=== PATIENT | female | born 1995 | race American Indian/Alaskan Native ===

== ENCOUNTER 2018-06-29 14:47 | Outpatient (CLI) | payer OTHER ==
[2018-06-29] MEDS ORDERED: LACTATED RINGERS 500 ML IV ONE (15:00)
[2018-06-29 15:11] VITALS: BP 111/63
[2018-06-29 15:43] LABS: Bacteria,Urine 1+ /HPF (Negative); Bilirubin,Urine NEG (Negative); Blood,Urine NEG (Negative); Color,Urine Yellow (Yellow); Mucus,Urine FEW /HPF; Protein,Urine <15 mg/dL mg/dL (Negative); Urobilinogen,Urine < 2.0 mg/dL (<2.0)
[2018-06-29 16:07] LABS: Amphetamine Screen,Urine PRESUMPTIVE NEGATIVE; Benzodiazepines Screen,Urine PRESUMPTIVE NEGATIVE; Cannabinoid Screen,Urine PRESUMPTIVE NEGATIVE; Cocaine Screen,Urine PRESUMPTIVE NEGATIVE; Methadone Screen,Urine PRESUMPTIVE NEGATIVE; Opiate Screen,Urine PRESUMPTIVE NEGATIVE
== END 2018-06-29 16:00 | disposition home or self-care (01) ==
LOC: TRG 14:47
PROVIDERS: ATTEND Obstetrics & Gynecology
DX: Z3A.21 21 weeks gestation of pregnancy (principal); O47.02 False labor before 37 completed weeks of gestation, second trimester
CPT/HCPCS: 59025; 80307; 81001

== ENCOUNTER 2018-11-03 04:49 | Inpatient (IN) | payer MEDICAID ==
--- NOTE | 2018-11-03 07:00 | History and Physical Report ---
History of Present Illness Date of examination: 11/03/18 Date of admission: 11/03/2018 Chief complaint: Contractions since 02:00 today. History of present illness: 23 year old presents to L&D at 39 5/7 weeks gestation with complaint of contractions since 02:00 this morning. Patient denies vaginal bleeding or leaking of fluid. Patient reports active movement. Patient received care at [facility]. LMP 01/29/2018. EDC 11/05/2018. EGA 39 5/7 weeks. significant for the following: abnormal 1 hour sugar test (only one abnormal value on 3 hour OGTT); anemia (supplemented with oral iron); late transfer in from OB practice in [facility]. labs: O+, antibody screen negative, rubella immune, RPR nonreactive, hepatitis B surface antigen negative, HIV negative, GC negative, CT negative, diabetes screen 185 (3 hour OGTT: 93, 175, 173, 119), GBS negative. Past History Past Medical History: other (obesity) Past Surgical History: no surgical history [facility] History: denies: abnormal PAP smear, chlamydia, gonorrhea, hepatitis B, hepatitis C, herpes, HIV, syphilis, trichomonas Social history: no significant social history - Obstetrical History Expected Date of Delivery: 11/05/18 Actual Gestation: 39 Week(s) 5 Day(s) : 3 Para: 0 Hx # Term Pregnancies: 1 Number of Pregnancies: 0 Spontaneous Abortions: 1 Induced : 1 Number of Living Children: 0 Medications and Allergies Allergies Allergy/AdvReac Type Severity Reaction Status Date / Time No Known Allergies Allergy Verified 11/03/18 04:55 Home Medications Medication Instructions Recorded Confirmed Last Taken Type Acetaminophen [Pain Reliever] 1,000 mg PO Q8H PRN 06/29/18 06/29/18 2 Days Ago History ~06/27/18 Pnv No.95/Ferrous Fum/Folic AC 1 tab PO QDAY 06/29/18 06/29/18 06/29/18 09:30 History [ Formula Tablet] Active Meds: Active Medications Ephedrine Sulfate (Ephedrine Sulfate) 10 mg IV Q2M PRN PRN Reason: Hypotension Fentanyl (Sublimaze) 100 mcg IV Q2H PRN PRN Reason: Labor Pain Lactated Ringer's (Lactated Ringers) 1,000 mls @ 125 mls/hr IV DIRECT MARIA ELENA Oxytocin/Sodium Chloride (Pitocin/Ns 20 Unit/1000ml Drip) 20 units in 1,000 mls @ 125 mls/hr IV DIRECT MARIA ELENA Review of Systems All systems: negative (contractions) - Vital Signs Vital signs: Vital Signs Pulse BP 82 129/75 11/03/18 06:33 11/03/18 06:33 Temp Pulse Resp BP Pulse Ox 82 129/75 11/03/18 06:33 11/03/18 06:33 - Physical Exam Abdomen: Positive: normal appearance, soft. Negative: distention, tenderness, guarding, rigidity Genitourinary (Female): Positive: normal external genitalia, normal perenium. Negative: perineal/vulvar lesions Vagina: Positive: normal moisture Uterus: Positive: enlarged. Negative: tender Anus/Rectum: Positive: normal perianal skin Extremities: Positive: normal. Negative: tenderness - Obstetrical FHR: category 1 Uterine Contraction Monitor Mode: External Cervical Dilatation: 4 Cervical Effacement Percentage: 100 station: -3 Uterine Contraction Pattern: Regular Uterine Contraction Intensity: Moderate Results All other labs normal. Assessment and Plan A: at 39 5/7 weeks gestation. Labor. GBS negative. P: Admit. Epidural if desired by patient. Anticipate vaginal .
[2018-11-03 08:31] LABS: Hematocrit 36.5 % (30.3-42.9); Mean Corpuscular HGB Conc 33 % (30-34); Mean Corpuscular Volume 78 fl (79-97); Platelet Count 180 K/mm3 (140-440); Red Blood Count 4.67 M/mm3 (3.65-5.03); Red Cell Distribution Width 17.2 % (13.2-15.2)
[2018-11-03] MEDS: SUBLIMAZE IV PRN ×2 (11:42→16:31)
--- NOTE | 2018-11-03 13:54 | Event Note ---
Date: 11/03/18 SVE /-2.
--- NOTE | 2018-11-03 15:26 | Event Note ---
Date: 11/03/18 Patient requests epidural. SVE 6/-2.
[2018-11-03] MEDS ORDERED: NARCAN 2 MG/2 ML IV PRN (16:26)
--- NOTE | 2018-11-03 16:26 | Anesthesia Consultation ---
Anesthesia Consult and Med Hx Date of service: 11/03/18 - Airway Anesthetic Teeth Evaluation: Good ROM Head & Neck: Adequate Mental/Hyoid Distance: Adequate Mallampati Class: Class III Intubation Access Assessment: Possibly Difficult - Pre-Operative Health Status ASA Pre-Surgery Classification: ASA3 Proposed Anesthetic Plan: Epidural, Spinal - Pulmonary Hx Asthma: No COPD: No Hx Pneumonia: No - Cardiovascular System Hx Hypertension: No - Central Nervous System Hx Seizures: No Hx Psychiatric Problems: No - Endocrine Hx Renal Disease: No Hx End Stage Renal Disease: No Hx Hypothyroidism: No Hx Hyperthyroidism: No - Hematic Hx Anemia: No Hx Sickle Cell Disease: No - Other Systems Hx Alcohol Use: No Hx Obesity: Yes (BMI 41)
[2018-11-03] MEDS: LACTATED RINGERS 1,000 ML IV SCH ×3 (16:30→20:26)
[2018-11-03] MEDS ORDERED: fentaNYL-BUPIV 2 MCG/ML-0.125% 200 MCG/100 ML BAG EPIDURAL SCH (17:00)
--- NOTE | 2018-11-03 19:53 | Event Note ---
Date: 11/03/18 SVE 9/0.
[2018-11-03] MEDS: PITOCin/NS 20 UNIT/1000ML DRIP 20 UNITS/1,000 ML BAG IV SCH (23:44)
[2018-11-04] MEDS ORDERED: PEPCID PO SCH (00:15)
[2018-11-04] MEDS ORDERED: NORCO 5/325 PO PRN (00:32)
[2018-11-04] MEDS ORDERED: TUCKS PAD TP PRN (00:32)
[2018-11-04] MEDS ORDERED: LANSINOH TP PRN (00:32)
[2018-11-04] MEDS ORDERED: MILK OF MAGNESIA PO PRN (00:32)
[2018-11-04] MEDS ORDERED: DULCOLAX PR PRN (00:32)
[2018-11-04] MEDS: PITOCin/NS 20 UNIT/1000ML DRIP 20 UNITS/1,000 ML BAG IV SCH (00:54)
[2018-11-04] MEDS ORDERED: SODIUM CHLORIDE FLUSH SYRINGE 10 ML IV PRN (01:00)
[2018-11-04] MEDS: IBUPROFEN PO SCH ×3 (01:32→18:43)
--- NOTE | 2018-11-04 02:51 | Procedure Note ---
OB Delivery Note - Delivery Date of Delivery: 11/03/18 Surgeon: ALEX WILEY Estimated blood loss: 300cc - Vaginal Delivery presentation: vertex Delivery position: OA Intrapartum events: meconium, shoulder dystocia Delivery induction: none Delivery monitor: external FHT, external uterine Route of delivery: Delivery placenta: spontaneous Delivery cord: 3 umbilical vessels Episiotomy: midline Delivery laceration: none Delivery repair: vicryl Anesthesia: epidural Delivery comments: Spontaneous vaginal delivery of liveborn male infant weighing 3.763 kg over 2nd degree midline episiotomy. Meconium stained amniotic fluid; NICU present for delivery. Mild shoulder dystocia resolved with delivery of posterior arm. Spontaneous cry and respirations. Baby bulb suctioned. Three vessel cord double clamped and cut after cessation of pulsation. Spontaneous delivery of intact placenta and membranes by slaughter mechanism. EBL 300 cc. Pitocin to IV fluids after delivery of placenta. Fundus firm and midline. Vaginal sweep negative. 2nd degree episiotomy repaired with 2-0 vicryl. No other lacerations noted. Sponge count correct. Vaginal sweep negative. Placenta was extremely calcified; wanted to sent to path. Pt. and partner refused to let us send placenta to path; state they want to take it home. Mother and baby stable.
[2018-11-04 06:18] LABS: Hematocrit 31.6 % (30.3-42.9); Hemoglobin 10.3 gm/dl (10.1-14.3)
[2018-11-04] MEDS ORDERED: DERMOPLAST TP PRN (11:38)
--- NOTE | 2018-11-04 11:40 | Progress Note ---
Assessment and Plan - Patient Problems (1) Status post normal vaginal delivery Current Visit: Yes Status: Acute Plan to address problem: PPD 1 - stable Continue routine PP orders Dermoplast ordered prn Anticipate discharge in 24 - 48 hours Subjective - Subjective Date of service: 11/04/18 Principal diagnosis: PPD #1; s/p Interval history: see H&P, Event Notes, and OB Delivery Procedure Note Patient reports: appetite normal, voiding normally, pain well controlled, ambulating normally, no dizzy ambulation : doing well, other (breast and bottle feeding) Objective - Vital Signs Latest vital signs: Vital Signs Temp Pulse Resp BP BP Pulse Ox 11/04/18 08:14 97.6 F 96 H 20 109/57 97 11/04/18 04:00 98.7 F 74 16 114/72 11/04/18 02:48 98.8 F 98 H 18 116/49 91 11/04/18 01:48 100 H 110/56 11/04/18 01:33 102 H 118/56 11/04/18 01:18 111 H 107/55 11/04/18 01:03 105 H 112/55 11/04/18 00:48 117 H 118/55 11/04/18 00:33 113 H 121/59 11/04/18 00:19 102 H 130/59 11/04/18 00:04 104 H 49/29 11/03/18 23:49 98 H 128/60 11/03/18 23:25 159 H 94 11/03/18 23:24 111 H 104/53 11/03/18 23:20 119 H 100 11/03/18 23:15 126 H 99 11/03/18 23:06 96 H 100 11/03/18 23:02 112 H 100 11/03/18 22:56 108 H 100 11/03/18 22:55 111 H 120/69 11/03/18 22:52 119 H 100 11/03/18 22:46 121 H 100 11/03/18 22:41 108 H 100 11/03/18 22:36 100 H 100 11/03/18 22:32 108 H 100 11/03/18 22:26 98 H 99 11/03/18 22:23 107 H 116/56 11/03/18 22:21 104 H 98 11/03/18 22:16 112 H 99 11/03/18 22:10 109 H 98 11/03/18 22:05 117 H 99 11/03/18 22:00 116 H 98 11/03/18 21:56 110 H 99 11/03/18 21:53 99 H 114/61 11/03/18 21:50 98 H 98 11/03/18 21:45 100 H 99 11/03/18 21:40 102 H 100 11/03/18 21:35 95 H 100 11/03/18 21:30 99 H 99 11/03/18 21:25 91 H 100 11/03/18 21:23 95 H 124/59 11/03/18 21:20 109 H 100 11/03/18 21:15 100 H 100 11/03/18 21:10 101 H 100 11/03/18 21:05 105 H 99 11/03/18 21:00 103 H 99 11/03/18 20:55 110 H 100 11/03/18 20:50 98 H 99 11/03/18 20:45 109 H 99 11/03/18 20:40 93 H 99 11/03/18 20:35 104 H 100 11/03/18 20:30 102 H 99 11/03/18 20:25 98 H 99 11/03/18 20:23 110 H 116/57 11/03/18 20:20 104 H 99 11/03/18 20:15 104 H 99 11/03/18 20:10 111 H 98 11/03/18 20:05 104 H 99 11/03/18 20:00 108 H 99 11/03/18 19:55 115 H 100 11/03/18 19:54 105 H 132/60 11/03/18 19:50 99 H 100 11/03/18 19:45 96 H 100 11/03/18 19:40 99 H 100 11/03/18 19:35 92 H 100 11/03/18 19:30 93 H 98 11/03/18 19:25 93 H 100 11/03/18 19:21 98.9 F 94 H 18 126/56 99 11/03/18 19:20 94 H 99 11/03/18 19:15 97 H 99 11/03/18 19:12 93 H 126/56 11/03/18 19:10 97 H 99 11/03/18 19:05 92 H 100 11/03/18 19:00 91 H 98 11/03/18 18:56 96 H 114/59 11/03/18 18:55 91 H 98 11/03/18 18:50 90 99 11/03/18 18:45 88 99 11/03/18 18:43 90 128/59 11/03/18 18:40 97 H 100 11/03/18 18:35 89 100 11/03/18 18:30 95 H 100 11/03/18 18:27 80 126/67 11/03/18 18:25 82 99 11/03/18 18:20 91 H 100 11/03/18 18:15 81 99 11/03/18 18:11 82 118/58 11/03/18 18:10 84 99 11/03/18 18:06 76 130/60 11/03/18 18:05 73 97 11/03/18 18:03 101 H 161/65 11/03/18 18:00 97 H 145/69 97 11/03/18 17:58 88 157/74 11/03/18 17:56 81 145/63 11/03/18 17:55 93 H 98 11/03/18 17:54 96 H 156/94 11/03/18 17:52 79 151/102 11/03/18 17:51 91 H 145/87 11/03/18 17:50 93 H 98 11/03/18 11:45 97.9 F 63 18 121/68 Intake and Output 11/03/18 11/04/18 11/04/18 23:59 07:59 15:59 Intake Total 491.666 445.833 Output Total 600 Balance -108.334 445.833 Intake: IV 491.666 145.833 Lactated Ringers 1,000 ml 491.666 @ 125 mls/hr IV DIRECT MARIA ELENA Rx#:[id number] PITOCin/NS 20 UNIT/1000ML 145.833 DRIP 20 units In 1,000 ml @ 125 mls/hr IV DIRECT MARIA ELENA Rx#:[id number] Intake, Free Water 300 Output: Urine 600 Indwelling Catheter 600 Other: Total, Output Amount 600 Estimated Blood Loss 300 - Exam Abdomen: Present: normal appearance, soft Vulva: both: laceration/episiotomy (well approximated) Uterus: Present: normal, firm, fundal height at umbilicus Extremities: Present: normal Comments: small lochia
[2018-11-04] MEDS: FEOSOL PO SCH ×2 (15:17→22:04)
[2018-11-04] MEDS: AUGMENTIN 500 MG PO SCH (15:17)
[2018-11-05] MEDS: AUGMENTIN 500 MG PO SCH ×2 (02:37→10:21)
[2018-11-05] MEDS ORDERED: BOOSTRIX IM ONE (06:00)
[2018-11-05] MEDS: FEOSOL PO SCH (10:21)
[2018-11-05] MEDS: IBUPROFEN PO SCH ×2 (10:21)
--- NOTE | 2018-11-05 10:37 | Discharge Summary ---
<CINDYMISTYZENIA Gu - Last Filed: 11/05/18 10:38> Providers - Providers Date of Admission: 11/03/18 07:31 Date of discharge: 11/05/18 Attending physician: DIXON MICHELLE MD Primary care physician: DIXON MICHELLE MD Hospitalization Delivery: Episiotomy: midline (healing as expected) Laceration: none Other procedures: none complications: none Discharge diagnosis: IUP at term delivered baby: male Hospital course: See H&P; Delivery summary; and PP round notes Condition at discharge: Good Disposition: DC-01 TO HOME OR SELFCARE - Discharge Diagnoses (1) Status post normal vaginal delivery Status: Acute Plan - Provider Discharge Summary Activity: routine, no sex for 6 weeks, no heavy lifting 4 weeks, no strenuous exercise Diet: routine Instructions: routine Additional instructions: [] Smoking cessation referral if applicable(refer to patient education folder for contact #) [] Refer to [facility] Booklet Call your doctor immediately for: * Fever > 100.5 * Heavy vaginal bleeding ( >1 pad per hour) * Severe persistent headache * Shortness of breath * Reddened, hot, painful area to leg or breast * Drainage or odor from incision. * Keep incision clean and dry at all times and follow doctor's instructions regarding bathing/showering - Follow up plan Follow up: DIXON MICHELLE MD [Primary Care Provider] - 6 Weeks Forms: [facility] Discharge Summary, Discharge Signature Page <SANDY MON Mable - Last Filed: 11/07/18 09:12> Providers - Providers Date of Admission: 11/03/18 07:31 Attending physician: DIXON MICHELLE MD Primary care physician: DIXON MICHELLE MD Hospitalization Hospital course: Laboratory Tests 11/03/18 11/03/18 11/03/18 08:27 08:27 08:27 WBC 11.4 H RBC 4.67 Hgb 12.0 Hct 36.5 MCV 78 L MCH 26 L MCHC 33 RDW 17.2 H Plt Count 180 RPR Nonreactive Blood Type O POSITIVE Antibody Screen Negative 11/04/18 05:29 WBC RBC Hgb 10.3 Hct 31.6 MCV MCH MCHC RDW Plt Count RPR Blood Type Antibody Screen - Discharge Diagnoses (1) Anemia due to acute blood loss Status: Acute Comment: Start outpatient iron supplementation Plan - Provider Discharge Summary Additional instructions: [] Smoking cessation referral if applicable(refer to patient education folder for contact #) [] Refer to [facility]'s [facility] Booklet Call your doctor immediately for: * Fever > 100.5 * Heavy vaginal bleeding ( >1 pad per hour) * Severe persistent headache * Shortness of breath * Reddened, hot, painful area to leg or breast * Drainage or odor from incision. * Keep incision clean and dry at all times and follow doctor's instructions regarding bathing/showering
--- NOTE | 2018-11-05 10:37 | Progress Note ---
<FRIDA WHITE - Last Filed: 11/05/18 10:33> Assessment and Plan P: Desires to D/C home today Appt with director of financial planning on 11/07 Schedule appt for circumcision after peds clearance F/U in office in 6 wks - Patient Problems (1) Status post normal vaginal delivery Status: Acute Subjective - Subjective Date of service: 11/05/18 Principal diagnosis: PPD #2; s/p Patient reports: appetite normal, voiding normally, pain well controlled, ambulating normally [place]: doing well, other (and breast feeding), bottle feeding Objective - Vital Signs Latest vital signs: Vital Signs Temp Pulse Resp BP BP Pulse Ox 11/05/18 07:41 98.2 F 84 18 116/72 99 11/05/18 00:00 16 11/04/18 23:18 98.6 F 73 20 108/67 97 11/04/18 18:43 16 11/04/18 16:47 98.6 F 89 20 123/65 97 11/04/18 12:15 97.3 F L 87 20 120/70 97 Intake and Output 11/04/18 11/05/18 11/05/18 23:59 07:59 15:59 Intake Total 360 720 Balance 360 720 Intake: Oral 360 360 Intake, Free Water 360 Other: Total, Intake Amount 360 360 # Voids Void 1 2 - Exam Breasts: Present: normal Cardiovascular: Present: Regular rate, Normal S1, Normal S2 Lungs: Present: Clear to auscultation, Normal air movement Abdomen: Present: normal appearance, normal bowel sounds Uterus: Present: normal, firm (U-2) Extremities: Present: normal Deep Tendon Reflex Grade: Normal +2 Incision: Present: other (Episotomy site- healing as expected; no signs of infection) <SANDY MON - Last Filed: 11/07/18 09:13> Assessment and Plan - Patient Problems (1) Anemia due to acute blood loss Status: Acute Plan to address problem: Laboratory Tests 11/03/18 11/03/18 11/03/18 08:27 08:27 08:27 WBC 11.4 H RBC 4.67 Hgb 12.0 Hct 36.5 MCV 78 L MCH 26 L MCHC 33 RDW 17.2 H Plt Count 180 RPR Nonreactive Blood Type O POSITIVE Antibody Screen Negative 11/04/18 05:29 WBC RBC Hgb 10.3 Hct 31.6 MCV MCH MCHC RDW Plt Count RPR Blood Type Antibody Screen
[2018-11-05 14:05] VITALS: BP 131/70
== END 2018-11-05 13:50 | disposition home or self-care (01) | DRG 775 ==
LOC: TRG 04:49 → LD 07:31 → OB 11-04 02:40
PROVIDERS: ADMIT Obstetrics & Gynecology; ATTEND Obstetrics & Gynecology
PROC: 10E0XZZ Delivery of Products of Conception, External Approach (ICD-10-PCS; principal; 2018-11-03)
PROC: 3E0R3BZ Introduction of Anesthetic Agent into Spinal Canal, Percutaneous Approach (ICD-10-PCS; 2018-11-03)
PROC: 0W8NXZZ Division of Female Perineum, External Approach (ICD-10-PCS; 2018-11-03)
PROC: 00HU33Z Insertion of Infusion Device into Spinal Canal, Percutaneous Approach (ICD-10-PCS; 2018-11-03)
PROC: 3E0234Z Introduction of Serum, Toxoid and Vaccine into Muscle, Percutaneous Approach (ICD-10-PCS; 2018-11-05)
DX: O99.214 Obesity complicating childbirth (principal); E66.9 Obesity, unspecified; O66.0 Obstructed labor due to shoulder dystocia; O77.0 Labor and delivery complicated by meconium in amniotic fluid; Z3A.39 39 weeks gestation of pregnancy; Z37.0 Single live birth; Z23 Encounter for immunization
CPT/HCPCS: 36415; 85014; 85018; 85027; 86592; 86850; 86900; 86901; 90471; 90715; G0378; J2590; J3010; J7120